=== PATIENT | female | born 1995 | race Caucasian/White ===

== ENCOUNTER 2018-04-12 11:44 | Emergency (ER) | payer OTHER ==
[~2018-04-12] VITALS: Ht 167.6 cm; Wt 68.2 kg
[2018-04-12 11:51] VITALS: BP 113/74; TEMP 97.5
[2018-04-12 14:17] LABS: COLLECTION METHOD CLEAN CATCH
[2018-04-12 14:23] LABS: PH 5 (5-8); SQUAMOUS EPITHELIAL 0-2 /hpf; URINE APPEARANCE Clear; URINE BACTERIA Rare /hpf; URINE BILIRUBIN Negative (NEGATIVE); URINE BLOOD 2+ (NEGATIVE); URINE COLOR Colorless; URINE GLUCOSE Negative (NEGATIVE); URINE KETONE Negative (NEGATIVE); URINE LEUKOCYTE ESTERASE Negative (NEGATIVE); URINE NITRATE Negative (NEGATIVE); URINE PROTEIN(semi-quant) Negative (NEGATIVE); URINE RBC 0-2 /hpf; URINE UROBILINOGEN Negative (NEGATIVE)
[2018-04-12 15:05] VITALS: PULSE 78
== END 2018-04-12 15:05 | disposition home or self-care (01) ==
LOC: COL.ER 11:44
PROVIDERS: Physician Assistant
DX: N83.202 Unspecified ovarian cyst, left side (principal); F17.210 Nicotine dependence, cigarettes, uncomplicated; Z90.89 Acquired absence of other organs